=== PATIENT | male | born 1940 | race Caucasian/White ===

== ENCOUNTER 2020-07-13 09:05 | Emergency (ER) | payer MEDICARE, BC ==
[2020-07-13 09:24] VITALS: RESP 18
--- NOTE | 2020-07-13 09:36 | ED ---
General Adult HPI - General Chief complaint: Fall Stated complaint: fall Time Seen by Provider: 07/13/20 09:17 Source: patient, EMS, RN notes reviewed Mode of arrival: EMS Limitations: altered mental status, physical limitation - History of Present Illness Initial comments: Patient is a pleasant 79-year-old male presenting to the emergency department af ter a fall. Incident apparently occurred this morning. Patient states there was a staff member putting something over his head when he was accidentally knocked down. Patient denies any loss of consciousness. Patient did strike his head. Patient did not pass out. No new weakness. Patient states he does have history of stroke and therefore he is on Lovenox for this. Patient states only mild discomfort. Patient does not feel confused. - Related Data Allergies Allergy/AdvReac Type Severity Reaction Status Date / Time Penicillins Allergy Rash/Hives Verified 07/13/20 09:24 Review of Systems ROS Statement: Those systems with pertinent positive or pertinent negative responses have been documented in the HPI. ROS Other: All systems not noted in ROS Statement are negative. Constitutional: Denies: fever Eyes: Denies: eye pain ENT: Denies: ear pain Respiratory: Denies: cough Cardiovascular: Denies: chest pain Endocrine: Denies: fatigue Gastrointestinal: Denies: abdominal pain Genitourinary: Denies: dysuria Musculoskeletal: Denies: back pain Skin: Reports: other (Laceration above left eyebrow) Neurological: Denies: weakness, confusion Past Medical History Past Medical History: Atrial Fibrillation, Coronary Artery Disease (CAD), Heart Failure, Dementia, Deep Vein Thrombosis (DVT), GERD/Reflux, Osteoarthritis (OA) Additional Past Medical History / Comment(s): Gout, BPH, ANEMIA History of Any Multi-Drug Resistant Organisms: None Reported Past Surgical History: Pacemaker Past Psychological History: Anxiety Smoking Status: Former smoker Past Alcohol Use History: None Reported Past Drug Use History: None Reported General Exam Limitations: altered mental status, physical limitation General appearance: alert, in no apparent distress Head exam: Present: other (Left forehead laceration above the eyebrow) Eye exam: Present: normal appearance, PERRL, EOMI ENT exam: Present: normal oropharynx Neck exam: Present: normal inspection. Absent: tenderness Respiratory exam: Present: normal lung sounds bilaterally Cardiovascular Exam: Present: regular rate, irregular rhythm GI/Abdominal exam: Present: soft. Absent: tenderness Extremities exam: Present: normal inspection Neurological exam: Present: alert, oriented X3, CN II-XII intact (Questionable left facial weakness which patient believes is chronic) Expanded Neurological exam: Present: protecting the airway Patient oriented to: Present: person, place, time Speech: Present: fluid speech Cranial nerves: EOM's Intact: Normal, Facial Sensation: Normal Sensory exam: Upper Extremity Light Touch: Normal, Lower Extremity Light Touch: Normal Motor strength exam: RUE: 5, LUE: 5, RLE: 5, LLE: 5 Eye Response: (4) open spontaneously Motor Response: (6) obeys commands Verbal Response: (5) oriented Psychiatric exam: Present: normal affect, normal mood Skin exam: Present: normal color Course Vital Signs 07/13/20 07/13/20 09:17 10:35 Temperature 97.9 F Pulse Rate 75 98 Respiratory 18 18 Rate Blood Pressure 126/84 140/96 O2 Sat by Pulse 98 94 L Oximetry - Reevaluation(s) Reevaluation #1: 07/13/20 09:37 Old EKG not available 07/13/20 10:50 Patient does have paperwork showing DO NOT RESUSCITATE status EKG Findings - EKG Comments: EKG Findings:: Paced rhythm with a rate of 79. 102. QT 414. QTC 474. Normal axis. Inferior T wave inversion. Lateral T wave inversion with some borderline ST depression. Procedures - Laceration Laceration #1 Consent Obtained: verbal consent Indication: laceration Site: face (Above the left eye brow) Size (cm): 3 Description: linear Depth: simple, single layer Pre-repair: wound explored, irrigated extensively Type of Sutures: other (Closed with Dermabond) Patient Tolerated Procedure: well, no complications Medical Decision Making - Medical Decision Making Patient reevaluated and updated - Radiology Data Radiology results: report reviewed (Computed tomography scan of the brain shows moderate atrophy. Ventriculomegaly. Chronic small vessel ischemic disease. Old infarct right vo radiata. No acute intercranial abnormality. CTs cervical spine no fracture. Thyroid nodules. Right paratracheal lymph node 1.5 cm.) Disposition Clinical Impression: Fall, Forehead laceration Disposition: HOME SELF-CARE Condition: Stable Instructions (If sedation given, give patient instructions): Fall Prevention for Older Adults (ED), Laceration (ED), Head Injury (ED), Skin Adhesive Care (ED) Additional Instructions: Please follow-up with primary care physician in the next day or 2 for recheck. Have primary care physician review CT results and follow-up will be needed. Return for change in mental status, weakness, bleeding, worsening symptoms or any other concerns. Please hold blood thinners for the next 24 hours. Is patient prescribed a controlled substance at d/c from ED?: No Referrals: Tu Medrano MD [Primary Care Provider] - 1-2 days Time of Disposition: 10:54
[2020-07-13] MEDS ORDERED: DIPH,PERTUS(ACELL)TETVAC-LF 0.5 ML VIAL IM ONE (09:44)
[2020-07-13] MEDS ORDERED: TOPICAL SKIN ADHESIVE 1 EACH AMP TOPICAL ONE (09:45)
--- NOTE | 2020-07-13 10:12 | CT ---
EXAMINATION TYPE: CT brain jaden marshall DATE OF EXAM: 07/13/2020 COMPARISON: None HISTORY: 79-year-old male with trauma, pain after Fall CT DLP: 1522.2 mGycm Automated exposure control for dose reduction was used. Technique: Examination of the head was done in axial plane without intravenous contrast. Coronal and sagittal reconstructions performed. CT of the cervical spine was obtained in axial plane without intravenous injection of contrast mater ial. Coronal and sagittal reformatted images were obtained from the axial views for evaluation of f ractures, spinal alignment and canal. FINDINGS: Head: There is no evidence of acute intracranial hemorrhage, acute ischemic changes, mass, mass-effect, or extra-axial fluid collection. There is no effacement of cerebral sulci or basal subarachnoid cister ns. There is no midline shift. Huber-white matter distinction is preserved. Moderate mucosal thickening left maxillary sinus and moderate to severe within the ethmoid air cell a nd right frontal sinus. Orbits and globes are intact. Mastoid air cells well pneumatized. Moderate size left lateral scalp contusion. No underlying calvarial fracture. Moderate generalized supratentorial volume loss including central cerebral atrophy. There is mild marcin triculomegaly noted. Moderate confluent white matter hypodensities in both cerebral hemispheres. Old infarct within the right vo radiata. Cervical spine: Prominent vascular dictation in the superior mediastinum. In addition, portal and mildly enlarged rig ht paratracheal lymph nodes measure up to 1.5 cm. Underlying thyroid nodules measuring up to 2.2 cm o n the right. No craniocervical junction abnormality, predental space widening, or prevertebral soft tissue swellin g. Degenerative changes of the C1 dens articulation. Moderate degenerative disc disease C5-C7 levels with disc space narrowing and disc complex mildly charley rowing the spinal canal. There seems to be a posterior disc protrusion at C3-C4 that may cause mild spinal canal stenosis. Multilevel facet and uncovertebral joint arthropathy. Trace grade 1 anterolisthesis C4-C5. Remaining alignment is maintained. Moderate right neuroforaminal stenosis at C3-C4. No acute fracture of the cervical spine. Sagittal and coronal reformatted images confirm above findings. COMBINED IMPRESSION: HEAD: 1. Moderate generalized atrophy. Mild ventriculomegaly probably on an ex vacuo basis from central atr ophy. Correlate to exclude a component of NPH. 2. Moderate confluent burden of chronic small vessel ischemic disease. Old infarct within the right c agustín radiata. 3. Left lateral scalp contusion. No acute intracranial abnormality seen. 4. Moderate chronic paranasal sinus disease. Moderate to severe in the ethmoid air cells. CERVICAL SPINE: 5. Follow-up nonemergent contrast-enhanced CT chest for right paratracheal lymph nodes measuring up t o 1.5 cm. Postinflammatory/reactive process or metastatic disease are in the differential. 6. Nonemergent thyroid ultrasound for underlying thyroid nodules measuring up to 2.2 cm. 7. No acute fracture of the cervical spine. Moderate spondylotic change with trace grade 1 anterolist hesis at C4-C5.
[2020-07-13 11:13] VITALS: BP 127/78; PULSE 78; TEMP 98.9
== END 2020-07-13 11:49 | disposition home or self-care (01) ==
LOC: EC 09:05
DX: S01.81XA Laceration without foreign body of other part of head, initial encounter (principal); Z23 Encounter for immunization; I25.10 Atherosclerotic heart disease of native coronary artery without angina pectoris; I48.91 Unspecified atrial fibrillation; I50.9 Heart failure, unspecified; Z95.0 Presence of cardiac pacemaker; Z86.73 Personal history of transient ischemic attack (TIA), and cerebral infarction without residual deficits; Z79.01 Long term (current) use of anticoagulants; Z87.891 Personal history of nicotine dependence; Z88.0 Allergy status to penicillin; W51.XXXA Accidental striking against or bumped into by another person, initial encounter
CPT/HCPCS: 12013; 70450; 72125; 90471; 90715; 93005; 99284

== ENCOUNTER 2020-07-17 17:42 | Emergency (ER) | payer MEDICARE, BC ==
--- NOTE | 2020-07-17 18:18 | ED ---
General Adult HPI - General Chief complaint: Fall Stated complaint: Fall Time Seen by Provider: 07/17/20 18:05 Source: patient, EMS Limitations: no limitations, altered mental status - History of Present Illness Initial comments: Dictation was produced using TRA dictation software. please excuse any grammatical, word or spelling errors. This patient was cared for during a federal and state declared state of emergency secondary to Covid 19 Chief Complaint: 79-year-old male multiple comorbidities presents after unwitnessed fall History of Present Illness: 79-year-old male who has past medical history of dementia, A. fib, DVTs. Presents today from [facility] after being found on the ground. Patient does not recollect the event. Apparently this is his baseline. Patient is a DO NOT RESUSCITATE. According to transfer documentation they report that he is currently at baseline. Suffered a fall recently and has periorbital ecchymoses laceration to the left eye that was repaired previously. The ROS documented in this emergency department record has been reviewed and confirmed by me. Those systems with pertinent positive or negative responses beck ve been documented in the HPI. All other systems are other negative and/or noncontributory. PHYSICAL EXAM: General Impression: Alert and oriented x3, not in acute distress HEENT: Left periorbital ecchymoses, extra-ocular movements intact, pupils equal and reactive to light bilaterally, mucous membranes moist. Cardiovascular: Heart regular rate and rhythm Chest: Able to complete full sentences, no retractions, no tachypnea Abdomen: abdomen soft, non-tender, non-distended, no organomegaly Musculoskeletal: Pulses present and equal in all extremities, no peripheral edema Motor: no focal deficits noted Neurological: CN II-XII grossly intact, no focal motor or sensory deficits noted Skin: Intact with no visualized rashes Psych: Normal affect and mood ED course: 79-year-old male with multiple comorbidities presents after being found on the ground. He had an unwitnessed fall. Vital signs upon arrival are within acceptable limits. Patient does not appear to be in any acute distress. Laboratory evaluation obtained. CBC is unremarkable. Metabolic panel is negative. Urinalysis is negative. Rotavirus tests is negative. Patient has no leukocytosis. Pelvis x-ray shows no dramatic injuries. Chest x-ray shows cardiomegaly with no pulmonary fibrotic changes. Computed tomography scan of the head and C-spine shows no acute processes. Patient reevaluated bedside approximately 8 PM. He is in stable medical condition. This point he is febrile without any obvious source. According to nurse her has been an outbreak of coronavirus. Patient's rapid coronavirus tests likely a false negative. Patient not hypoxic. Pending coronavirus PCR, blood cultures and urine cultures. Patient is stable medical condition. patient discharged back to skilled nursing. Patient discharged with Covid 19 DC instructions. Patient not showing any signs of serious bacterial illness. No antibiotics indicated at this time. EKG interpretation: Ventricular rate 104, A. fib, QRS 84, QTC 476. No KS prolongation, no QTC prolongation, no ST or T-wave changes noted. EKG compared to 06/23/2020 showing no changes. Overall, this EKG is unremarkable - Related Data Home Medications Medication Instructions Recorded Confirmed Acetaminophen [Tylenol 8 Hour] 650 mg PO Q8H PRN 07/17/20 07/17/20 Allopurinol [Zyloprim] 200 mg PO DAILY 07/17/20 07/17/20 Ascorbic Acid [Vitamin C] 500 mg PO DAILY 07/17/20 07/17/20 Cholecalciferol [Vitamin D3 (25 2,000 unit PO DAILY 07/17/20 07/17/20 Mcg = 1000 Iu)] DULoxetine HCL [Cymbalta] 60 mg PO DAILY 07/17/20 07/17/20 Diltiazem HCl [Cartia Xt] 120 mg PO DAILY 07/17/20 07/17/20 Divalproex ER [Depakote ER] 250 mg PO BID 07/17/20 07/17/20 Divalproex [Depakote] 500 mg PO DAILY@1500 07/17/20 07/17/20 Enoxaparin [Lovenox] 40 mg SQ DAILY 07/17/20 07/17/20 Ferrous Sulfate [Feosol] 325 mg PO DAILY 07/17/20 07/17/20 Finasteride [Proscar] 5 mg PO DAILY 07/17/20 07/17/20 Fluticasone/Vilanterol [Breo 1 puff INHALATION RT-DAILY 07/17/20 07/17/20 Ellipta 100-25 Mcg Inhaler] Metoprolol Tartrate [Lopressor] 100 mg PO DAILY 12/31/20 12/31/20 Montelukast [Singulair] 10 mg PO DAILY 07/17/20 07/17/20 Omeprazole 20 mg PO DAILY 07/17/20 07/17/20 Potassium Chloride ER [K-Dur 20] 20 meq PO BID 07/17/20 07/17/20 Tamsulosin [Flomax] 0.8 mg PO DAILY 07/17/20 07/17/20 Zinc 50 mg PO DAILY 07/17/20 07/17/20 metOLazone [Zaroxolyn] 5 mg PO MOWEFR 07/17/20 07/17/20 traMADol HCl [Ultram] 50 mg PO Q6H PRN 07/17/20 07/17/20 Allergies Allergy/AdvReac Type Severity Reaction Status Date / Time morphine Allergy Unknown Verified 07/17/20 19:20 Penicillins Allergy Rash/Hives Verified 07/17/20 19:20 Review of Systems ROS Statement: Those systems with pertinent positive or pertinent negative responses have been documented in the HPI. ROS Other: All systems not noted in ROS Statement are negative. Past Medical History Past Medical History: Atrial Fibrillation, Coronary Artery Disease (CAD), Heart Failure, Dementia, Deep Vein Thrombosis (DVT), GERD/Reflux, Osteoarthritis (OA) Additional Past Medical History / Comment(s): Gout, BPH, ANEMIA History of Any Multi-Drug Resistant Organisms: None Reported Past Surgical History: Pacemaker Past Psychological History: Anxiety Smoking Status: Former smoker Past Alcohol Use History: None Reported Past Drug Use History: None Reported General Exam Limitations: no limitations, altered mental status Course Vital Signs 07/17/20 07/17/20 17:44 18:52 Temperature 98 F 101.5 F H Pulse Rate 76 90 Respiratory 18 18 Rate Blood Pressure 129/83 129/83 O2 Sat by Pulse 94 L 94 L Oximetry Medical Decision Making - Lab Data Result diagrams: 07/17/20 18:15 07/17/20 18:15 Lab Results 07/17/20 07/17/20 07/17/20 Range/Units 18:15 18:15 18:58 WBC 7.6 (3.8-10.6) k/uL RBC 5.44 (4.30-5.90) m/uL Hgb 14.2 (13.0-17.5) gm/dL Hct 45.2 (39.0-53.0) % MCV 83.1 (80.0-100.0) fL MCH 26.1 (25.0-35.0) pg MCHC 31.4 (31.0-37.0) g/dL RDW 19.3 H (11.5-15.5) % Plt Count 217 (150-450) k/uL MPV 6.7 Neutrophils % 85 % Lymphocytes % 4 % Monocytes % 9 % Eosinophils % 2 % Basophils % 1 % Neutrophils # 6.4 (1.3-7.7) k/uL Lymphocytes # 0.3 L (1.0-4.8) k/uL Monocytes # 0.7 (0-1.0) k/uL Eosinophils # 0.1 (0-0.7) k/uL Basophils # 0.0 (0-0.2) k/uL Hypochromasia Slight Anisocytosis Slight Microcytosis Slight Sodium 137 (137-145) mmol/L Potassium 4.7 (3.5-5.1) mmol/L Chloride 102 (98-107) mmol/L Carbon Dioxide 30 (22-30) mmol/L Anion Gap 5 mmol/L BUN 30 H (9-20) mg/dL Creatinine 1.24 (0.66-1.25) mg/dL Est GFR (CKD-EPI)AfAm 65 (>60 ml/min/1.73 sqM) Est GFR (CKD-EPI)NonAf 56 (>60 ml/min/1.73 sqM) Glucose 105 H (74-99) mg/dL Calcium 8.7 (8.4-10.2) mg/dL Total Bilirubin 1.0 (0.2-1.3) mg/dL AST 23 (17-59) U/L ALT 8 (4-49) U/L Alkaline Phosphatase 138 H (38-126) U/L Total Protein 7.0 (6.3-8.2) g/dL Albumin 3.4 L (3.5-5.0) g/dL Urine Color Urine Appearance (Clear) Urine pH (5.0-8.0) Ur Specific [place] (1.001-1.035) Urine Protein (Negative) Urine Glucose (UA) (Negative) Urine Ketones (Negative) Urine Blood (Negative) Urine Nitrite (Negative) Urine Bilirubin (Negative) Urine Urobilinogen (<2.0) mg/dL Ur Leukocyte Esterase (Negative) Coronavirus (PCR) Not Detected (Not Detectd) 07/17/20 Range/Units 19:37 WBC (3.8-10.6) k/uL RBC (4.30-5.90) m/uL Hgb (13.0-17.5) gm/dL Hct (39.0-53.0) % MCV (80.0-100.0) fL MCH (25.0-35.0) pg MCHC (31.0-37.0) g/dL RDW (11.5-15.5) % Plt Count (150-450) k/uL MPV Neutrophils % % Lymphocytes % % Monocytes % % Eosinophils % % Basophils % % Neutrophils # (1.3-7.7) k/uL Lymphocytes # (1.0-4.8) k/uL Monocytes # (0-1.0) k/uL Eosinophils # (0-0.7) k/uL Basophils # (0-0.2) k/uL Hypochromasia Anisocytosis Microcytosis Sodium (137-145) mmol/L Potassium (3.5-5.1) mmol/L Chloride (98-107) mmol/L Carbon Dioxide (22-30) mmol/L Anion Gap mmol/L BUN (9-20) mg/dL Creatinine (0.66-1.25) mg/dL Est GFR (CKD-EPI)AfAm (>60 ml/min/1.73 sqM) Est GFR (CKD-EPI)NonAf (>60 ml/min/1.73 sqM) Glucose (74-99) mg/dL Calcium (8.4-10.2) mg/dL Total Bilirubin (0.2-1.3) mg/dL AST (17-59) U/L ALT (4-49) U/L Alkaline Phosphatase (38-126) U/L Total Protein (6.3-8.2) g/dL Albumin (3.5-5.0) g/dL Urine Color Yellow Urine Appearance Clear (Clear) Urine pH 6.5 (5.0-8.0) Ur Specific [place] 1.018 (1.001-1.035) Urine Protein Trace H (Negative) Urine Glucose (UA) Negative (Negative) Urine Ketones Negative (Negative) Urine Blood Negative (Negative) Urine Nitrite Negative (Negative) Urine Bilirubin Negative (Negative) Urine Urobilinogen <2.0 (<2.0) mg/dL Ur Leukocyte Esterase Negative (Negative) Coronavirus (PCR) (Not Detectd) Disposition Clinical Impression: Fall, Fever, COVID-19 Disposition: HOME SELF-CARE Additional Instructions: Today you were evaluated for symptoms consistent with covid 19. There is concern that perhaps your symptomatology may represent Covid 19. Your are stable for discharge, however it is instructed to to seek immediate medical attention especially if you develop worsening symptoms especially respiratory distress. In the meantime please remain in quarantine for 14 days. For any other questions please contact Naomi for here in emergency department or [facility] at [phone] Is patient prescribed a controlled substance at d/c from ED?: No Referrals: Tu Medrano MD [Primary Care Provider] - 1-2 days Time of Disposition: 19:59
[2020-07-17 18:31] LABS: Anisocytosis Slight; Basophils % (A) 1 %; Eosinophils # (A) 0.1 k/uL (0-0.7); Eosinophils % (A) 2 %; HCT 45.2 % (39.0-53.0); HGB 14.2 gm/dL (13.0-17.5); Hypochromasia Slight; Lymphocytes # (A) 0.3 k/uL (1.0-4.8); Lymphocytes % (A) 4 %; MCH 26.1 pg (25.0-35.0); MCHC 31.4 g/dL (31.0-37.0); MCV 83.1 fL (80.0-100.0); Mean Platelet Volume 6.7; Microcytosis Slight; Monocytes # (A) 0.7 k/uL (0-1.0); Monocytes % (A) 9 %; Neutrophils # (A) 6.4 k/uL (1.3-7.7); Neutrophils % (A) 85 %; Platelet Count 217 k/uL (150-450); RBC 5.44 m/uL (4.30-5.90); RDW 19.3 % (11.5-15.5); WBC 7.6 k/uL (3.8-10.6)
[2020-07-17 18:44] LABS: Albumin 3.4 g/dL (3.5-5.0); Calcium 8.7 mg/dL (8.4-10.2); Potassium 4.7 mmol/L (3.5-5.1)
--- NOTE | 2020-07-17 18:49 | XR ---
EXAMINATION TYPE: XR pelvis AP view DATE OF EXAM: 07/17/2020 COMPARISON: None HISTORY: Pain. TECHNIQUE: FINDINGS: A single view shows an intact pelvic ring. I see no fracture. There is osteopenia. Acetabul a appear intact. Sacroiliac joints appear intact. Proximal femurs appear intact. IMPRESSION: No fracture seen.
--- NOTE | 2020-07-17 18:50 | XR ---
EXAMINATION TYPE: XR chest 1V portable DATE OF EXAM: 07/17/2020 COMPARISON: NONE HISTORY: Pain TECHNIQUE: Single view FINDINGS: Heart is enlarged. There is coarsening interstitial markings. Mediastinum appears normal. T horacic aorta is atheromatous. There is no pleural effusion. There is no heart failure. There is righ t axillary pacemaker. Bony thorax appears intact. IMPRESSION: Cardiomegaly. Pulmonary fibrotic changes. No obvious heart failure.
[2020-07-17] MEDS ORDERED: ACETAMINOPHEN TAB 500 MG TAB PO STA (18:55)
--- NOTE | 2020-07-17 19:47 | CT ---
EXAMINATION TYPE: CT brain jaden marshall DATE OF EXAM: 07/17/2020 COMPARISON: 07/13/2020 HISTORY: Unwittnessed fall Headache. Neck pain CT DLP: 1531.2 mGycm Automated exposure control for dose reduction was used. There is moderate diffuse cerebral atrophy. There is patchy hypodensity in the periventricular white matter and more severe in the frontal lobes. There is old small left posterior frontal lobe cortical infarct. There is no mass effect nor midline shift. There is no sign of intracranial hemorrhage. The calvarium is intact. There is left temporal parietal scalp hematoma. The skull base is intact. There is moderate mucosal thickening in the nasopharynx. There is mucosal thickening in the maxillary ethmoid frontal and sphenoid sinuses. The cervical vertebra have normal alignment. There is narrowing at C5-6 and C6-7 disc spaces with spu rring. Facet joints are intact. I see no bony destructive process. IMPRESSION: Spondylotic changes in the lower cervical spine. No fracture. Cerebral atrophy and chronic small vessel ischemia. No acute intracranial abnormality. Pansinusitis. Cervical spine unchanged. Brain unchanged.
[2020-07-17 19:49] LABS: Appearance,Urine Clear (Clear); Bilirubin,Urine Negative (Negative); Blood,Urine Negative (Negative); Color,Urine Yellow; Glucose,Urine (UA) Negative (Negative); Ketones,Urine Negative (Negative); Leukocyte Esterase,Urine Negative (Negative); Nitrite,Urine Negative (Negative); PH, Urine 6.5 (5.0-8.0); Protein,Urine Trace (Negative); Specific Gravity,Urine 1.018 (1.001-1.035); Urobilinogen,Urine <2.0 mg/dL (<2.0)
[2020-07-17 21:52] VITALS: BP 133/83; PULSE 77; RESP 20; TEMP 98
== END 2020-07-17 21:52 | disposition home or self-care (01) ==
LOC: EC 17:42
DX: S05.12XA Contusion of eyeball and orbital tissues, left eye, initial encounter (principal); I51.7 Cardiomegaly; R50.9 Fever, unspecified; I48.91 Unspecified atrial fibrillation; M10.9 Gout, unspecified; I50.9 Heart failure, unspecified; M19.90 Unspecified osteoarthritis, unspecified site; N40.0 Benign prostatic hyperplasia without lower urinary tract symptoms; D64.9 Anemia, unspecified; K21.9 Gastro-esophageal reflux disease without esophagitis; F41.9 Anxiety disorder, unspecified; Z20.828 Contact with and (suspected) exposure to other viral communicable diseases; Z79.51 Long term (current) use of inhaled steroids; Z79.899 Other long term (current) drug therapy; Z79.01 Long term (current) use of anticoagulants; Z88.5 Allergy status to narcotic agent; Z88.0 Allergy status to penicillin; Z87.891 Personal history of nicotine dependence; Z86.718 Personal history of other venous thrombosis and embolism; Z66 Do not resuscitate; W19.XXXA Unspecified fall, initial encounter; Y92.009 Unspecified place in unspecified non-institutional (private) residence as the place of occurrence of the external cause
CPT/HCPCS: 36415; 70450; 71045; 72125; 72170; 80053; 81003; 85025; 87040; 87635; 93005; 99284

== ENCOUNTER 2020-09-05 08:03 | Emergency (ER) | payer MEDICARE, BC ==
[2020-09-05] MEDS ORDERED: ACETAMINOPHEN TAB 500 MG TAB PO STA (08:07)
[2020-09-05 08:11] LABS: Glucose,Whole Blood 99 mg/dL (75-99)
[2020-09-05] MEDS ORDERED: IBUPROFEN 600 MG TAB PO STA (08:11)
--- NOTE | 2020-09-05 08:29 | ED ---
General Adult HPI - General Chief complaint: Altered Mental Status Stated complaint: fall, unresponsive Time Seen by Provider: 09/05/20 08:03 Source: patient, EMS, RN notes reviewed, old records reviewed Mode of arrival: EMS Limitations: no limitations - History of Present Illness Initial comments: This is a 79-year-old male who [facility] emergency Department from a [facility] for altered mental status and oxygenation at about 80%. According to staff there yesterday at 5:30 in the evening he fell and hit his head but they did not have evaluated that time because he seemed to be doing all right. A report was that he was on aspirin but no blood thinners. Patient was found this morning unresponsive and when they checked her pulse ox on them it was at 80%. According to EMS in route they gave him oxygen via nonrebreather he started becoming more alert and arousable and oriented to self. Patient also had a temperature of 100.[address]. Patient's sugar was [address] Patient himself is a poor inspiratory in his present condition but does deny any pain. No other history is available at this time. - Related Data Home Medications Medication Instructions Recorded Confirmed Acetaminophen [Tylenol 8 Hour] 650 mg PO Q8H PRN 07/17/20 09/05/20 Allopurinol [Zyloprim] 200 mg PO DAILY 07/17/20 09/05/20 Ascorbic Acid [Vitamin C] 500 mg PO HS 07/17/20 09/05/20 DULoxetine HCL [Cymbalta] 60 mg PO DAILY 07/17/20 09/05/20 Diltiazem HCl [Cartia Xt] 120 mg PO DAILY 07/17/20 09/05/20 Divalproex ER [Depakote ER] 250 mg PO BID@0600,2200 07/17/20 09/05/20 Divalproex [Depakote] 500 mg PO DAILY@1500 07/17/20 09/05/20 Ferrous Sulfate [Feosol] 325 mg PO DAILY 07/17/20 09/05/20 Finasteride [Proscar] 5 mg PO DAILY 07/17/20 09/05/20 Fluticasone/Vilanterol [Breo 1 puff INHALATION RT-DAILY 07/17/20 09/05/20 Ellipta 100-25 Mcg Inhaler] Metoprolol Tartrate [Lopressor] 100 mg PO DAILY 07/17/20 09/05/20 Montelukast [Singulair] 10 mg PO HS 07/17/20 09/05/20 Omeprazole 20 mg PO DAILY@0600 07/17/20 09/05/20 Potassium Chloride ER [K-Dur 20] 20 meq PO BID 07/17/20 09/05/20 Tamsulosin [Flomax] 0.8 mg PO HS 07/17/20 09/05/20 Zinc 50 mg PO HS 07/17/20 09/05/20 metOLazone [Zaroxolyn] 5 mg PO MOWEFR 07/17/20 09/05/20 traMADol HCl [Ultram] 50 mg PO Q6H PRN 07/17/20 09/05/20 Aspirin 81 mg PO DAILY 09/05/20 09/05/20 Cholecalciferol [Vitamin D3 (25 50 mcg PO HS 09/05/20 09/05/20 Mcg = 1000 Iu)] Z-Guard 1 applic TOPICAL BID 09/05/20 09/05/20 Allergies Allergy/AdvReac Type Severity Reaction Status Date / Time morphine Allergy Unknown Verified 09/05/20 08:14 Penicillins Allergy Rash/Hives Verified 09/05/20 08:14 Review of Systems ROS Statement: Those systems with pertinent positive or pertinent negative responses have been documented in the HPI. ROS Other: All systems not noted in ROS Statement are negative. Past Medical History Past Medical History: Atrial Fibrillation, Coronary Artery Disease (CAD), Heart Failure, Dementia, Deep Vein Thrombosis (DVT), GERD/Reflux, Osteoarthritis (OA) Additional Past Medical History / Comment(s): Gout, BPH, ANEMIA History of Any Multi-Drug Resistant Organisms: None Reported Past Surgical History: Pacemaker Past Psychological History: Anxiety Smoking Status: Former smoker Past Alcohol Use History: None Reported Past Drug Use History: None Reported General Exam - General Exam Comments Initial Comments: GENERAL: Patient is well-developed and well-nourished. Patient is nontoxic and well- hydrated and is in mild distress. ENT: Neck is soft and supple. No significant lymphadenopathy is noted. Oropharynx is clear. Moist mucous membranes. Neck has full range of motion without eliciting any pain. EYES: The sclera were anicteric and conjunctiva were pink and moist. Extraocular movements were intact and pupils were equal round and reactive to light. Eyelids were unremarkable. PULMONARY: Unlabored respirations. Good breath sounds bilaterally. No audible rales rhonchi or wheezing was noted. CARDIOVASCULAR: Patient has an irregular heart rate in the 140 beats minute ABDOMEN: Soft and nontender with normal bowel sounds. SKIN: Skin is clear with no lesions or rashes and otherwise unremarkable. NEUROLOGIC: Patient is alert and oriented 1. Cranial nerves II through XII are grossly intact. Motor and sensory are also intact. Normal speech, volume and content. Symmetrical smile. MUSCULOSKELETAL: Normal extremities with adequate strength and full range of motion. Chronic edema and cellulitis. LYMPHATICS: No significant lymphadenopathy is noted PSYCHIATRIC: Unable to assess secondary to the patient's mental status Limitations: no limitations Course Vital Signs 09/05/20 09/05/20 08:04 08:38 Temperature 99.8 F H Pulse Rate 144 H 147 H Respiratory 18 18 Rate Blood Pressure 114/80 108/62 O2 Sat by Pulse 94 L 92 L Oximetry Medical Decision Making - Medical Decision Making EKG shows atrial fibrillation with rapid ventricular response at 131 bpm QRS is 94 QT interval 06 QTC is 451. Patient's EKG shows no ST segment elevation or depression. CT of the C-spine shows no acute abnormality. CT of the brain shows a high left parietal subarachnoid hemorrhage. Chest x-ray shows large left-sided pleural effusion and possible infiltrate. Patient received antibiotics to cover for pneumonia. Patient is in atrial fibrillation but systolic blood pressure is 100 at this time so started. Patient is oxygenating 92% on 4 L. Paperwork states that the patient is DO NOT RESUSCITATE I spoke with Meaghan Carbajal and they agreed with the patient I transfer the patient. - Lab Data Result diagrams: 09/05/20 08:11 09/05/20 08:11 Lab Results 09/05/20 09/05/20 09/05/20 Range/Units 08:09 08:11 08:11 WBC 10.7 H (3.8-10.6) k/uL RBC 5.38 (4.30-5.90) m/uL Hgb 14.8 (13.0-17.5) gm/dL Hct 46.6 (39.0-53.0) % MCV 86.6 (80.0-100.0) fL MCH 27.6 (25.0-35.0) pg MCHC 31.8 (31.0-37.0) g/dL RDW 16.7 H (11.5-15.5) % Plt Count 269 (150-450) k/uL MPV 6.6 Neutrophils % 89 % Lymphocytes % 2 % Monocytes % 7 % Eosinophils % 1 % Basophils % 0 % Neutrophils # 9.6 H (1.3-7.7) k/uL Lymphocytes # 0.2 L (1.0-4.8) k/uL Monocytes # 0.8 (0-1.0) k/uL Eosinophils # 0.1 (0-0.7) k/uL Basophils # 0.0 (0-0.2) k/uL Hypochromasia Slight Anisocytosis Slight PT 11.1 (9.0-12.0) sec INR 1.1 (<1.2) APTT 23.3 (22.0-30.0) sec Sodium (137-145) mmol/L Potassium (3.5-5.1) mmol/L Chloride (98-107) mmol/L Carbon Dioxide (22-30) mmol/L Anion Gap mmol/L BUN (9-20) mg/dL Creatinine (0.66-1.25) mg/dL Est GFR (CKD-EPI)AfAm (>60 ml/min/1.73 sqM) Est GFR (CKD-EPI)NonAf (>60 ml/min/1.73 sqM) Glucose (74-99) mg/dL POC Glucose (mg/dL) 99 (75-99) mg/dL POC Glu Third Mate ID Addison Mcgovern Plasma Lactic Acid Zuhair (0.7-2.0) mmol/L Calcium (8.4-10.2) mg/dL Magnesium (1.6-2.3) mg/dL Total Bilirubin (0.2-1.3) mg/dL AST (17-59) U/L ALT (4-49) U/L Alkaline Phosphatase (38-126) U/L Total Protein (6.3-8.2) g/dL Albumin (3.5-5.0) g/dL 09/05/20 09/05/20 Range/Units 08:11 08:11 WBC (3.8-10.6) k/uL RBC (4.30-5.90) m/uL Hgb (13.0-17.5) gm/dL Hct (39.0-53.0) % MCV (80.0-100.0) fL MCH (25.0-35.0) pg MCHC (31.0-37.0) g/dL RDW (11.5-15.5) % Plt Count (150-450) k/uL MPV Neutrophils % % Lymphocytes % % Monocytes % % Eosinophils % % Basophils % % Neutrophils # (1.3-7.7) k/uL Lymphocytes # (1.0-4.8) k/uL Monocytes # (0-1.0) k/uL Eosinophils # (0-0.7) k/uL Basophils # (0-0.2) k/uL Hypochromasia Anisocytosis PT (9.0-12.0) sec INR (<1.2) APTT (22.0-30.0) sec Sodium 136 L (137-145) mmol/L Potassium 5.2 H (3.5-5.1) mmol/L Chloride 98 (98-107) mmol/L Carbon Dioxide 29 (22-30) mmol/L Anion Gap 9 mmol/L BUN 38 H (9-20) mg/dL Creatinine 1.41 H (0.66-1.25) mg/dL Est GFR (CKD-EPI)AfAm 55 (>60 ml/min/1.73 sqM) Est GFR (CKD-EPI)NonAf 48 (>60 ml/min/1.73 sqM) Glucose 109 H (74-99) mg/dL POC Glucose (mg/dL) (75-99) mg/dL POC Glu Third Mate ID Plasma Lactic Acid Zuhair 1.6 (0.7-2.0) mmol/L Calcium 8.9 (8.4-10.2) mg/dL Magnesium 2.1 (1.6-2.3) mg/dL Total Bilirubin 1.9 H (0.2-1.3) mg/dL AST 20 (17-59) U/L ALT 10 (4-49) U/L Alkaline Phosphatase 161 H (38-126) U/L Total Protein 6.8 (6.3-8.2) g/dL Albumin 3.3 L (3.5-5.0) g/dL Critical Care Time Critical Care Time: Yes Total Critical Care Time: 35 Disposition Clinical Impression: Subarachnoid hemorrhage, Atrial fibrillation with rapid ventricular response, Pneumonia, Pleural effusion, Altered mental state Disposition: OTHER INSTITUTION NOT DEFINED Referrals: Tu Medrano MD [Primary Care Provider] - 1-2 days Time of Disposition: 09:03 - Out of Hospital Transfer - Req. Specs Out of Hospital Transfer - Requested Specifics: Other Emergency Center ([facility])
[2020-09-05 08:38] LABS: Anisocytosis Slight; Basophils % (A) 0 %; Eosinophils # (A) 0.1 k/uL (0-0.7); Eosinophils % (A) 1 %; HCT 46.6 % (39.0-53.0); HGB 14.8 gm/dL (13.0-17.5); Hypochromasia Slight; Lymphocytes # (A) 0.2 k/uL (1.0-4.8); Lymphocytes % (A) 2 %; MCH 27.6 pg (25.0-35.0); MCHC 31.8 g/dL (31.0-37.0); MCV 86.6 fL (80.0-100.0); Mean Platelet Volume 6.6; Monocytes # (A) 0.8 k/uL (0-1.0); Monocytes % (A) 7 %; Neutrophils # (A) 9.6 k/uL (1.3-7.7); Neutrophils % (A) 89 %; Platelet Count 269 k/uL (150-450); RBC 5.38 m/uL (4.30-5.90); RDW 16.7 % (11.5-15.5); WBC 10.7 k/uL (3.8-10.6)
[2020-09-05 08:46] LABS: INR 1.1 (<1.2); Partial Thromboplastin Time 23.3 sec (22.0-30.0); Prothrombin Time 11.1 sec (9.0-12.0)
[2020-09-05 08:49] LABS: Albumin 3.3 g/dL (3.5-5.0); Calcium 8.9 mg/dL (8.4-10.2); Magnesium 2.1 mg/dL (1.6-2.3); Potassium 5.2 mmol/L (3.5-5.1); Total Bilirubin 1.9 mg/dL (0.2-1.3); Total Protein 6.8 g/dL (6.3-8.2)
--- NOTE | 2020-09-05 08:49 | CT ---
EXAMINATION TYPE: CT brain jaden wo con DATE OF EXAM: 09/05/2020 COMPARISON: 07/17/2020 HISTORY: Fall, fever CT DLP: 2330.[address] of the brain was performed. The ventricles, basal cisterns and sulci overlying the cerebral convexities demonstrate moderate thor acic scoliosis area AA have Gabino R he has a subarachnoid hemorrhage in the left parietal region high ly high left parietal I don't see any without enlargement. There is evidence for subarachnoid hemorrhage within the high left parietal region. No additional are as of intracranial hemorrhage are identified at this time. There is decreased attenuation about the p eriventricular white matter and deep white matter of both cerebral hemispheres, compatible with chron ic small vessel ischemia. No mass effects are seen. If symptoms persist consider MRI. Osseous calvarium is intact. IMPRESSION: 1. There is evidence for subarachnoid hemorrhage within the high left parietal region. No additional areas of intracranial hemorrhage are identified at this time. CT Cervical Spine: Unenhanced CT of the cervical spine was performed with bone and soft tissue window settings submitted . Coronal and sagittal reconstruction is obtained. There is normal alignment and prevertebral soft tissues. No evidence for acute cervical fracture . Scattered degenerative disc disease and spondylosis. Biapical scarring. IMPRESSION: 1. No evidence for acute fracture or subluxation of the cervical spine.
[2020-09-05 09:01] LABS: Appearance,Urine Clear (Clear); Bacteria,Urine Rare /hpf; Bilirubin,Urine 1+ (Negative); Blood,Urine Negative (Negative); Color,Urine Orange; Glucose,Urine (UA) Negative (Negative); Ketones,Urine Trace (Negative); Leukocyte Esterase,Urine Negative (Negative); Mucus,Urine Few /hpf; Nitrite,Urine Negative (Negative); PH, Urine 5.5 (5.0-8.0); Protein,Urine 1+ (Negative); RBC,Urine 2 /hpf (0-5); Specific Gravity,Urine 1.027 (1.001-1.035); WBC,Urine 1 /hpf (0-5)
--- NOTE | 2020-09-05 09:07 | XR ---
EXAMINATION TYPE: XR chest 1V portable DATE OF EXAM: 09/05/2020 COMPARISON: 07/17/2020 INDICATION: Low O2 TECHNIQUE: Single frontal view of the chest is obtained. FINDINGS: The heart size is large. The pulmonary vasculature is normal. Moderate to large left pleural effusion is likely present. Pacemaker overlies the right chest IMPRESSION: 1. Cardiomegaly. 2. Moderate to large left pleural effusion
[2020-09-05 09:13] VITALS: PULSE 149
[2020-09-05 09:29] VITALS: RESP 24
[2020-09-05 09:33] VITALS: BP 115/92; TEMP 98.7
[2020-09-05] MEDS ORDERED: cefTRIAXone IN SWFI 1,000 MG/10 ML SYRINGE IVP STA (09:35)
[2020-09-05] MEDS ORDERED: cefTRIAXone IN SWFI 1,000 MG/10 ML SYRINGE IVP SCH (09:36)
== END 2020-09-05 11:12 | disposition other institution (70) ==
LOC: EC 08:03
DX: S06.6X9A Traumatic subarachnoid hemorrhage with loss of consciousness of unspecified duration, initial encounter (principal); I48.20 Chronic atrial fibrillation, unspecified; J18.9 Pneumonia, unspecified organism; J90 Pleural effusion, not elsewhere classified; R41.82 Altered mental status, unspecified; M10.9 Gout, unspecified; I50.9 Heart failure, unspecified; M19.90 Unspecified osteoarthritis, unspecified site; K21.9 Gastro-esophageal reflux disease without esophagitis; N40.0 Benign prostatic hyperplasia without lower urinary tract symptoms; D64.9 Anemia, unspecified; F41.9 Anxiety disorder, unspecified; Z79.899 Other long term (current) drug therapy; Z79.82 Long term (current) use of aspirin; Z88.5 Allergy status to narcotic agent; Z88.0 Allergy status to penicillin; Z86.718 Personal history of other venous thrombosis and embolism; Z87.891 Personal history of nicotine dependence; Z66 Do not resuscitate; W19.XXXA Unspecified fall, initial encounter
CPT/HCPCS: 36415; 93005; 83880; 80053; 83605; 83735; 84484; 85025; 85610; 85730; 81001; 87040; 87502; 71045; 72125; 70450; 99291; 96374; J0696